=== PATIENT | female | born 1980 | race Two or more races ===

== ENCOUNTER 2024-01-11 12:22 | Emergency (ER) | payer BC, OTHER ==
[~2024-01-11] VITALS: Ht 170.2 cm; Wt 58.0 kg
[2024-01-11 13:03] LABS: Basophils # (auto) 0.1 10 ^3/uL (0-0.2); Eosinophils # (auto) 0.1 10 ^3/uL (0-0.8); Eosinophils % (auto) 1.8 % (0.0-7.0); Hematocrit 39.3 % (36.0-46.0); Hemoglobin 13.3 g/dL (12.2-16.2); Lymphocytes # (auto) 1.6 10 ^3/uL (0.4-5.4); Lymphocytes % (auto) 31.9 % (10.0-50.0); Mean Corpuscular Hemoglobin 31.2 pg (28.0-32.0); Mean Corpuscular Hgb Conc. 33.8 g/dL (32.0-36.0); Mean Corpuscular Volume 92.3 fL (80.0-100.0); Monocytes # (auto) 0.5 10 ^3/uL (0-1.3); Monocytes % (auto) 9.9 % (0.0-12.0); Neutrophils # (auto) 2.8 10 ^3/uL (1.6-8.6); Neutrophils % (auto) 55.4 % (37.0-80.0); Nucleated Red Blood Cells % 0.1 %; Red Blood Cells 4.26 10^6/uL (4.0-5.20); Red Cell Distribution Width 13.6 % (11.8-14.3); White Blood Cell 5.1 10^3/uL (4.4-10.8)
[2024-01-11 13:27] LABS: Chloride 104 mmol/L (98-107); Potassium 3.6 mmol/L (3.5-5.1); Sodium 136 mmol/L (136-145)
[2024-01-11 13:28] LABS: Anion Gap 7 (5-15); Calcium 9.3 mg/dL (8.7-10.4); Carbon Dioxide 25 mmol/L (20-30)
[2024-01-11 13:33] LABS: BUN/Creatinine Ratio 13.9 (10.0-20.0); Blood Urea Nitrogen 11 mg/dL (9-23); Glucose 132 mg/dL (74-106)
[2024-01-11 13:34] LABS: Blood Alcohol < 3.0 mg/dL (<10); Magnesium 1.5 mg/dL (1.6-2.6)
[2024-01-11 14:19] LABS: Urine Bacteria FEW /hpf (None Seen); Urine Blood Negative /uL (Negative); Urine Clarity Clear (Clear); Urine Protein, UAD Negative (Negative); Urine Specific Gravity 1.009 (1.001-1.035); Urine Urobilinogen Normal (Negative); Urine WBC <1 /hpf (0 - 5)
[2024-01-11 14:20] LABS: Urine Color Light-Yellow (Yellow)
[2024-01-11 14:59] VITALS: BP 104/61; PULSE 79; RESP 18; TEMP 98.6; O2SAT 98
== END 2024-01-11 15:00 | disposition home or self-care (01) ==
LOC: ER 12:22
DX: R20.0 Anesthesia of skin (principal); R53.1 Weakness; R20.2 Paresthesia of skin; E03.9 Hypothyroidism, unspecified; Z98.890 Other specified postprocedural states
CPT/HCPCS: 36415; 70450; 80048; 80320; 81001; 82962; 83735; 85025; 93005